=== PATIENT | female | born 1945 | race Caucasian/White ===

== ENCOUNTER 2019-05-01 15:40 | Inpatient (IN) ==
[2019-05-01] MEDS ORDERED: Ipratropium/Albuterol Neb 3 ML IH ONE (15:44)
[2019-05-01] MEDS ORDERED: 0.9 % Sodium Chloride 1,000 ML IVC ONE (15:55)
[2019-05-01] MEDS ORDERED: levoFLOXacin 750 MG/150 ML 750 MG/150 ML BAG IVPB ONE (15:55)
[2019-05-01 16:24] LABS: Basophils % 0.4 %; Eosinophils # 0.2 K/mcL (0.0-0.6); Eosinophils % 1.9 %; Hematocrit 28.5 % (35.3-44.9); Hemoglobin 9.4 g/dL (11.5-15.4); Immature Granulocytes % 0.4 % (0-4); Lymphocytes # 2.4 K/mcL (0.6-4.6); Lymphocytes % 30.2 %; Mean Corpuscular Hemoglobin 28.5 pg (28.0-33.3); Mean Corpuscular Volume 86.4 fL (83.0-100.0); Mean Platelet Volume 9.4 fL (9.4-12.4); Monocytes % 12.4 %; Neutrophils # 4.4 K/mcL (1.6-8.9); Platelet Count 252 K/mcL (140-400); Red Cell Distribution Width 15.9 % (11.5-14.5); Segmented Neutrophils % 54.7 %
[2019-05-01 16:32] LABS: INR 1.3; Prothrombin Time 15.3 Seconds (9.4-12.1)
[2019-05-01 16:43] LABS: Troponin I < 0.03 ng/mL (< 0.04)
[2019-05-01 16:44] LABS: Alanine Aminotransferase 16 Units/L (7-52); Albumin 3.4 g/dL (3.5-5.7); Albumin/Globulin Ratio 1.3 (1.1-2.2); Alkaline Phosphatase 59 Units/L (34-104); Aspartate Amino Transferase 17 Units/L (13-39); BUN/Creatinine Ratio 13 (6-26); Bilirubin,Direct 0.1 mg/dL (0.0-0.2); Bilirubin,Indirect 0.2 mg/dL (0.0-1.0); Bilirubin,Total 0.3 mg/dL (0.3-1.0); Blood Urea Nitrogen 5 mg/dL (8-23); Calcium 8.6 mg/dL (8.6-10.3); Carbon Dioxide 32 mEq/L (23-29); Chloride 91 mEq/L (98-107); Globulin 2.6 g/dL (2.4-3.5); Glucose 122 mg/dL (70-105); Osmolality,Calculated 269 (280-300); Potassium 3.3 mEq/L (3.5-5.1); Sodium 130 mEq/L (136-145); eGFR For African Americans > 60 (> 60); eGFR For Non-African Americans > 60 (> 60)
[2019-05-01] MEDS ORDERED: Ondansetron ODT 4 MG TAB.RAPDIS SL PRN (17:24)
[2019-05-01] MEDS ORDERED: Naloxone 0.4 MG/ML INJ IVP PRN (17:30)
[2019-05-01] MEDS ORDERED: Mag Hydrox/Al Hydrox/Simeth 30 ML UDC PO PRN (17:30)
[2019-05-01] MEDS: 0.9 % Sodium Chloride 1,000 ML IVC SCH (17:31)
[2019-05-01] MEDS ORDERED: D5% in Water 1,000 ML IVC PRN (17:32)
[2019-05-01] MEDS ORDERED: Dextrose Gel 15 GM/37.5 ML TUBE PO PRN ×2 (17:32)
[2019-05-01] MEDS ORDERED: *HR* Dextrose 50 % in Water (Vial) 50 ML VIAL IVP PRN (17:32)
[2019-05-01 17:53] LABS: Bilirubin,Urine Negative (Negative); Blood,Urine Trace-intact (Negative); Clarity,Urine Slightly Cloudy (Clear); Color,Urine Yellow (Yellow); Glucose,Urine (UA) 100 mg/dL (Normal); Ketones,Urine Negative (Negative); Leukocyte Esterase,Urine Small (Negative); Nitrite,Urine Negative (Negative); PH,Urine 5.5 pH Units (5.0-8.0); Protein,Urine Negative (Neg-Trace); Specific Gravity,Urine 1.025 (1.010-1.025); Urobilinogen,Urine Normal (Normal)
[2019-05-01 18:00] LABS: Bacteria,Urine Moderate per hpf (None-Few); Mucus,Urine Few per lpf (Few); RBC,Urine 0-3 per hpf (0-3); Squamous Epithelial Cell,Urine Many per lpf (None-Few)
[2019-05-01] MEDS ORDERED: Budesonide/Formoterol 160/4.5 1 PUFF INH IH SCH (18:00)
[2019-05-01] MEDS: Ipratropium/Albuterol Neb 3 ML IH SCH (18:27)
[2019-05-01] MEDS: Apixaban 5 MG TABLET PO SCH (20:19)
[2019-05-01] MEDS: Insulin LISPRO 300 UNITS/3 ML VIAL SQ SCH (20:20)
[2019-05-01] MEDS: Insulin DETEMIR 100 UNIT/ML X5UNITS SQ SCH (20:21)
[2019-05-01] MEDS: *HR* LORazepam 0.5 MG TABLET PO PRN (21:19)
[2019-05-01] MEDS: Budesonide/Formoterol 160/4.5 1 PUFF INH IH SCH (22:24)
[2019-05-02] MEDS: Ipratropium/Albuterol Neb 3 ML IH SCH ×3 (01:07→14:56)
[2019-05-02] MEDS: 0.9 % Sodium Chloride 1,000 ML IVC SCH ×2 (02:20→09:05)
[2019-05-02 07:02] LABS: Hematocrit 28.5 % (35.3-44.9); Hemoglobin 9.2 g/dL (11.5-15.4); Mean Corpuscular HGB Conc 32.3 g/dL (31.6-35.5); Mean Corpuscular Hemoglobin 28.1 pg (28.0-33.3); Mean Corpuscular Volume 87.2 fL (83.0-100.0); Mean Platelet Volume 10.1 fL (9.4-12.4); Platelet Count 256 K/mcL (140-400); Red Blood Count 3.27 M/mcL (3.82-4.97); White Blood Count 7.4 K/mcL (4.3-11.1)
[2019-05-02 07:32] LABS: BUN/Creatinine Ratio 15 (6-26); Blood Urea Nitrogen 5 mg/dL (8-23); Calcium 8.3 mg/dL (8.6-10.3); Carbon Dioxide 29 mEq/L (23-29); Chloride 100 mEq/L (98-107); Glucose 43 mg/dL (70-105); Osmolality,Calculated 280 (280-300); Potassium 3.1 mEq/L (3.5-5.1); Sodium 138 mEq/L (136-145); eGFR For African Americans > 60 (> 60); eGFR For Non-African Americans > 60 (> 60)
[2019-05-02] MEDS: Fluticasone Propionate Nasal 50 MCG/SPRAY BOTTLE NS SCH (09:04)
[2019-05-02] MEDS: Insulin LISPRO 300 UNITS/3 ML VIAL SQ SCH ×4 (09:04→21:04)
[2019-05-02] MEDS: DilTIAZem CD (24hr) 120 MG CAP.ER.24H PO SCH (09:06)
[2019-05-02] MEDS: Apixaban 5 MG TABLET PO SCH ×2 (09:06→21:02)
[2019-05-02] MEDS: Nicotine 21 MG PATCH.TD24 TD SCH (09:06)
[2019-05-02] MEDS: *HR* LORazepam 0.5 MG TABLET PO PRN ×2 (09:12→21:22)
[2019-05-02] MEDS ORDERED: Racepinephrine Neb 0.5 ML VIAL IH ONE (14:58)
[2019-05-02] MEDS ORDERED: *HR* LORazepam 2 MG/ML VIAL IVP STA (15:01)
[2019-05-02] MEDS ORDERED: Furosemide 40 MG/4 ML VIAL IVP ONE (15:19)
[2019-05-02 15:34] LABS: ABG Base Excess 1 mEq/L (-2 to 3); ABG HCO3 29 mEq/L (21-27); ABG Oxygen Saturation 96 % (95-98); ABG PCO2 60 mmHg (35-45); ABG PO2 94 mmHg (85-104); ABG TCO2 31 mEq/L (20-26)
[2019-05-02] MEDS ORDERED: levoFLOXacin 750 MG/150 ML 750 MG/150 ML BAG IVPB SCH (16:00)
[2019-05-02] MEDS ORDERED: Ipratropium/Albuterol Neb 3 ML IH STA (16:27)
[2019-05-02] MEDS: Budesonide/Formoterol 160/4.5 1 PUFF INH IH SCH (20:06)
[2019-05-02] MEDS: levoFLOXacin 750 MG/150 ML 750 MG/150 ML BAG IVPB SCH (21:02)
[2019-05-02] MEDS: Insulin DETEMIR 100 UNIT/ML X5UNITS SQ SCH (21:04)
[2019-05-02] MEDS: Albuterol 2.5 MG/3 ML NEBULIZER IH PRN (21:55)
[2019-05-03] MEDS: Ipratropium/Albuterol Neb 3 ML IH SCH ×3 (02:21→17:10)
[2019-05-03] MEDS: Insulin LISPRO 300 UNITS/3 ML VIAL SQ SCH ×4 (07:26→21:30)
[2019-05-03 08:22] LABS: Hematocrit 26.4 % (35.3-44.9); Hemoglobin 8.7 g/dL (11.5-15.4); Mean Corpuscular Hemoglobin 28.4 pg (28.0-33.3); Mean Corpuscular Volume 86.3 fL (83.0-100.0); Mean Platelet Volume 9.9 fL (9.4-12.4); Platelet Count 249 K/mcL (140-400); Red Blood Count 3.06 M/mcL (3.82-4.97); Red Cell Distribution Width 15.9 % (11.5-14.5); White Blood Count 8.4 K/mcL (4.3-11.1)
[2019-05-03] MEDS: Fluticasone Propionate Nasal 50 MCG/SPRAY BOTTLE NS SCH (08:39)
[2019-05-03] MEDS: DilTIAZem CD (24hr) 120 MG CAP.ER.24H PO SCH (08:39)
[2019-05-03] MEDS: Nicotine 21 MG PATCH.TD24 TD SCH (08:39)
[2019-05-03] MEDS: Apixaban 5 MG TABLET PO SCH ×2 (08:39→21:24)
[2019-05-03 08:43] LABS: BUN/Creatinine Ratio 12 (6-26); Blood Urea Nitrogen 4 mg/dL (8-23); Calcium 8.6 mg/dL (8.6-10.3); Carbon Dioxide 33 mEq/L (23-29); Chloride 97 mEq/L (98-107); Glucose 85 mg/dL (70-105); Magnesium 1.5 mg/dL (1.6-2.6); Osmolality,Calculated 280 (280-300); Potassium 3.4 mEq/L (3.5-5.1); Sodium 137 mEq/L (136-145); eGFR For African Americans > 60 (> 60); eGFR For Non-African Americans > 60 (> 60)
[2019-05-03] MEDS: Furosemide 20 MG/2 ML VIAL IVP SCH (10:38)
[2019-05-03] MEDS: *HR* LORazepam 0.5 MG TABLET PO PRN ×2 (10:38→18:58)
[2019-05-03 12:01] LABS: Adenovirus Not Detected (Not Detect); Bordetella Pertussis Not Detected (Not Detect); Chlamydophila pneumoniae Not Detected (Not Detect); Coronavirus 229E Not Detected (Not Detect); Coronavirus HKU1 Not Detected (Not Detect); Coronavirus NL63 Not Detected (Not Detect); Coronavirus OC43 Not Detected (Not Detect); Human Metapneumovirus Not Detected (Not Detect); Human Rhinovirus/Enterovirus Not Detected (Not Detect); Influenza A Subtype 2009 H1 Not Detected (Not Detect); Influenza B Not Detected (Not Detect); Mycoplasma pneumoniae Not Detected (Not Detect); Parainfluenza Virus 1 Not Detected (Not Detect); Parainfluenza Virus 2 Not Detected (Not Detect); Parainfluenza Virus 3 Not Detected (Not Detect); Parainfluenza Virus 4 Not Detected (Not Detect); Respiratory Syncytial Virus Not Detected (Not Detect)
[2019-05-03] MEDS: Magnesium Oxide 400 MG TABLET PO SCH ×2 (12:40→21:30)
[2019-05-03] MEDS: MethylPREDNISolone 40 MG/ML VIAL IVP SCH ×2 (17:00→22:51)
[2019-05-03] MEDS: levoFLOXacin 750 MG/150 ML 750 MG/150 ML BAG IVPB SCH (21:25)
[2019-05-03] MEDS: Insulin DETEMIR 100 UNIT/ML X5UNITS SQ SCH (21:30)
[2019-05-03] MEDS: Budesonide/Formoterol 160/4.5 1 PUFF INH IH SCH (21:47)
[2019-05-03] MEDS: Albuterol 2.5 MG/3 ML NEBULIZER IH PRN (21:49)
[2019-05-04] MEDS: Ipratropium/Albuterol Neb 3 ML IH SCH ×3 (02:36→17:40)
[2019-05-04 07:21] LABS: Hematocrit 27.7 % (35.3-44.9); Mean Corpuscular HGB Conc 32.5 g/dL (31.6-35.5); Mean Corpuscular Hemoglobin 28.3 pg (28.0-33.3); Mean Corpuscular Volume 87.1 fL (83.0-100.0); Mean Platelet Volume 10.3 fL (9.4-12.4); Platelet Count 251 K/mcL (140-400); Red Blood Count 3.18 M/mcL (3.82-4.97); Red Cell Distribution Width 15.8 % (11.5-14.5); White Blood Count 4.4 K/mcL (4.3-11.1)
[2019-05-04 07:57] LABS: BUN/Creatinine Ratio 19 (6-26); Blood Urea Nitrogen 8 mg/dL (8-23); Calcium 9.1 mg/dL (8.6-10.3); Carbon Dioxide 33 mEq/L (23-29); Chloride 95 mEq/L (98-107); Glucose 282 mg/dL (70-105); Osmolality,Calculated 291 (280-300); Potassium 4.2 mEq/L (3.5-5.1); Sodium 136 mEq/L (136-145); eGFR For African Americans > 60 (> 60); eGFR For Non-African Americans > 60 (> 60)
[2019-05-04] MEDS: Fluticasone Propionate Nasal 50 MCG/SPRAY BOTTLE NS SCH (08:42)
[2019-05-04] MEDS: Furosemide 20 MG/2 ML VIAL IVP SCH (08:42)
[2019-05-04] MEDS: MethylPREDNISolone 40 MG/ML VIAL IVP SCH ×3 (08:43→23:26)
[2019-05-04] MEDS: Nicotine 21 MG PATCH.TD24 TD SCH (08:43)
[2019-05-04] MEDS: Insulin LISPRO 300 UNITS/3 ML VIAL SQ SCH ×4 (08:44→21:10)
[2019-05-04] MEDS: Magnesium Oxide 400 MG TABLET PO SCH ×2 (08:46→21:09)
[2019-05-04] MEDS: *HR* LORazepam 0.5 MG TABLET PO PRN ×2 (08:47→17:07)
[2019-05-04] MEDS: Apixaban 5 MG TABLET PO SCH ×2 (08:47→21:10)
[2019-05-04] MEDS: DilTIAZem CD (24hr) 120 MG CAP.ER.24H PO SCH (08:48)
[2019-05-04] MEDS: Insulin DETEMIR 100 UNIT/ML X5UNITS SQ SCH (21:10)
[2019-05-04] MEDS: Budesonide/Formoterol 160/4.5 1 PUFF INH IH SCH (21:51)
[2019-05-04] MEDS: Piperacillin/Tazobactam 3.375 GM in 0.9 % Sodium Chloride Mini Bag 100 ML IVPB SCH (23:26)
[2019-05-05] MEDS: Ipratropium/Albuterol Neb 3 ML IH SCH ×3 (02:46→18:31)
[2019-05-05 06:33] LABS: Hematocrit 25.8 % (35.3-44.9); Hemoglobin 8.4 g/dL (11.5-15.4); Mean Corpuscular HGB Conc 32.6 g/dL (31.6-35.5); Mean Corpuscular Hemoglobin 28.5 pg (28.0-33.3); Mean Corpuscular Volume 87.5 fL (83.0-100.0); Mean Platelet Volume 10.4 fL (9.4-12.4); Platelet Count 266 K/mcL (140-400); Red Blood Count 2.95 M/mcL (3.82-4.97); Red Cell Distribution Width 15.9 % (11.5-14.5); White Blood Count 9.3 K/mcL (4.3-11.1)
[2019-05-05 06:59] LABS: BUN/Creatinine Ratio 28 (6-26); Blood Urea Nitrogen 13 mg/dL (8-23); Carbon Dioxide 35 mEq/L (23-29); Chloride 95 mEq/L (98-107); Glucose 316 mg/dL (70-105); Osmolality,Calculated 292 (280-300); Potassium 4.6 mEq/L (3.5-5.1); Sodium 135 mEq/L (136-145); eGFR For African Americans > 60 (> 60); eGFR For Non-African Americans > 60 (> 60)
[2019-05-05] MEDS: Piperacillin/Tazobactam 3.375 GM in 0.9 % Sodium Chloride Mini Bag 100 ML IVPB SCH ×3 (08:03→23:23)
[2019-05-05] MEDS: Furosemide 20 MG/2 ML VIAL IVP SCH (08:11)
[2019-05-05] MEDS: MethylPREDNISolone 40 MG/ML VIAL IVP SCH (08:11)
[2019-05-05] MEDS: Fluticasone Propionate Nasal 50 MCG/SPRAY BOTTLE NS SCH (08:11)
[2019-05-05] MEDS: Apixaban 5 MG TABLET PO SCH ×2 (08:15→20:28)
[2019-05-05] MEDS: DilTIAZem CD (24hr) 120 MG CAP.ER.24H PO SCH (08:15)
[2019-05-05] MEDS: Magnesium Oxide 400 MG TABLET PO SCH (08:16)
[2019-05-05] MEDS: *HR* LORazepam 0.5 MG TABLET PO PRN ×2 (08:20→16:51)
[2019-05-05] MEDS: Insulin LISPRO 300 UNITS/3 ML VIAL SQ SCH ×4 (08:21→20:29)
[2019-05-05] MEDS: Nicotine 21 MG PATCH.TD24 TD SCH (08:23)
[2019-05-05] MEDS ORDERED: Furosemide 20 MG TABLET PO PRN (14:11)
[2019-05-05] MEDS: predniSONE 20 MG TABLET PO SCH (14:30)
[2019-05-05] MEDS: Furosemide 20 MG TABLET PO SCH (18:20)
[2019-05-05] MEDS: Insulin DETEMIR 100 UNIT/ML X5UNITS SQ SCH (20:29)
[2019-05-05] MEDS ORDERED: Budesonide/Formoterol 160/4.5 1 PUFF INH IH SCH (22:00)
[2019-05-06] MEDS: Ipratropium/Albuterol Neb 3 ML IH SCH ×2 (00:58→10:42)
[2019-05-06] MEDS: Nicotine 21 MG PATCH.TD24 TD SCH (08:47)
[2019-05-06] MEDS: Fluticasone Propionate Nasal 50 MCG/SPRAY BOTTLE NS SCH (08:47)
[2019-05-06] MEDS: Furosemide 20 MG TABLET PO SCH (08:48)
[2019-05-06] MEDS: predniSONE 20 MG TABLET PO SCH (08:48)
[2019-05-06] MEDS: DilTIAZem CD (24hr) 120 MG CAP.ER.24H PO SCH (08:48)
[2019-05-06] MEDS: *HR* LORazepam 0.5 MG TABLET PO PRN (08:48)
[2019-05-06] MEDS: Apixaban 5 MG TABLET PO SCH (08:48)
[2019-05-06] MEDS: Piperacillin/Tazobactam 3.375 GM in 0.9 % Sodium Chloride Mini Bag 100 ML IVPB SCH (08:49)
[2019-05-06] MEDS: Insulin LISPRO 300 UNITS/3 ML VIAL SQ SCH ×2 (08:57→12:16)
[2019-05-06 09:54] LABS: Hematocrit 29.4 % (35.3-44.9); Hemoglobin 9.5 g/dL (11.5-15.4); Mean Corpuscular HGB Conc 32.3 g/dL (31.6-35.5); Mean Corpuscular Hemoglobin 28.1 pg (28.0-33.3); Platelet Count 307 K/mcL (140-400); Red Blood Count 3.38 M/mcL (3.82-4.97); Red Cell Distribution Width 16.3 % (11.5-14.5); White Blood Count 11.8 K/mcL (4.3-11.1)
[2019-05-06 10:10] LABS: BUN/Creatinine Ratio 27 (6-26); Blood Urea Nitrogen 16 mg/dL (8-23); Carbon Dioxide 35 mEq/L (23-29); Chloride 94 mEq/L (98-107); Glucose 220 mg/dL (70-105); Magnesium 1.8 mg/dL (1.6-2.6); Osmolality,Calculated 290 (280-300); Potassium 4.1 mEq/L (3.5-5.1); Sodium 136 mEq/L (136-145); eGFR For African Americans > 60 (> 60); eGFR For Non-African Americans > 60 (> 60)
[2019-05-06 10:47] VITALS: BP 126/70
== END 2019-05-06 15:20 | disposition other institution (70) | DRG 191 ==
LOC: EMEROOPIK 15:40 → INPPIK 15:40
PROVIDERS: ADMIT Family Medicine; ATTEND Family Medicine

== ENCOUNTER 2019-05-06 10:13 | Inpatient (IN) ==
[2019-05-06] MEDS ORDERED: *HR* Dextrose 50 % in Water (Syg) 50 ML SYRINGE IVP PRN (15:28)
[2019-05-06] MEDS ORDERED: D5% in Water 1,000 ML IVC PRN (15:28)
[2019-05-06] MEDS ORDERED: Dextrose Gel 15 GM/37.5 ML TUBE PO PRN ×2 (15:28)
[2019-05-06] MEDS ORDERED: Ondansetron ODT 4 MG TAB.RAPDIS SL PRN (15:41)
[2019-05-06] MEDS ORDERED: Albuterol 2.5 MG/3 ML NEBULIZER IH PRN (15:41)
[2019-05-06] MEDS ORDERED: Mag Hydrox/Al Hydrox/Simeth 30 ML UDC PO PRN (15:41)
[2019-05-06] MEDS ORDERED: Piperacillin/Tazobactam 3.375 GM VIAL IVPB SCH (16:00)
[2019-05-06] MEDS ORDERED: *HR* Dextrose 50 % in Water (Vial) 50 ML VIAL IVP PRN (17:15)
[2019-05-06] MEDS: Ipratropium/Albuterol Neb 3 ML IH SCH (17:24)
[2019-05-06] MEDS: Piperacillin/Tazobactam 3.375 GM in 0.9 % Sodium Chloride Mini Bag 100 ML IVPB SCH (17:38)
[2019-05-06] MEDS: Insulin LISPRO 300 UNITS/3 ML VIAL SQ SCH ×2 (17:39→19:56)
[2019-05-06] MEDS: *HR* LORazepam 0.5 MG TABLET PO PRN (17:44)
[2019-05-06] MEDS: Apixaban 5 MG TABLET PO SCH (19:54)
[2019-05-06] MEDS: Insulin DETEMIR 100 UNIT/ML X5UNITS SQ SCH (19:55)
[2019-05-06] MEDS: Budesonide/Formoterol 160/4.5 1 PUFF INH IH SCH (21:31)
[2019-05-07] MEDS: Ipratropium/Albuterol Neb 3 ML IH SCH ×3 (02:52→17:13)
[2019-05-07] MEDS: Piperacillin/Tazobactam 3.375 GM in 0.9 % Sodium Chloride Mini Bag 100 ML IVPB SCH ×3 (02:56→17:56)
[2019-05-07 06:18] LABS: Basophils # 0.1 K/mcL (0.0-0.2); Basophils % 0.6 %; Eosinophils % 0.1 %; Hematocrit 28.9 % (35.3-44.9); Hemoglobin 9.5 g/dL (11.5-15.4); Lymphocytes # 1.1 K/mcL (0.6-4.6); Lymphocytes % 11.1 %; Mean Corpuscular HGB Conc 32.9 g/dL (31.6-35.5); Mean Corpuscular Hemoglobin 28.3 pg (28.0-33.3); Mean Platelet Volume 10.3 fL (9.4-12.4); Monocytes # 1.5 K/mcL (0.0-1.3); Neutrophils # 6.5 K/mcL (1.6-8.9); Nucleated Red Blood Cells 0.4 /100 WBC (0); Platelet Count 297 K/mcL (140-400); Red Blood Count 3.36 M/mcL (3.82-4.97); Red Cell Distribution Width 15.9 % (11.5-14.5); Segmented Neutrophils % 64.2 %
[2019-05-07 06:39] LABS: BUN/Creatinine Ratio 24 (6-26); Blood Urea Nitrogen 12 mg/dL (8-23); Carbon Dioxide 35 mEq/L (23-29); Chloride 96 mEq/L (98-107); Glucose 74 mg/dL (70-105); Osmolality,Calculated 284 (280-300); Potassium 3.8 mEq/L (3.5-5.1); Sodium 138 mEq/L (136-145); eGFR For African Americans > 60 (> 60); eGFR For Non-African Americans > 60 (> 60)
[2019-05-07 07:23] LABS: Platelet Estimate Normal (Normal)
[2019-05-07] MEDS: Insulin LISPRO 300 UNITS/3 ML VIAL SQ SCH ×4 (07:58→19:54)
[2019-05-07] MEDS: Furosemide 20 MG TABLET PO SCH (09:04)
[2019-05-07] MEDS: Nicotine 21 MG PATCH.TD24 TD SCH (09:04)
[2019-05-07] MEDS: Apixaban 5 MG TABLET PO SCH ×2 (09:05→19:53)
[2019-05-07] MEDS: DilTIAZem CD (24hr) 120 MG CAP.ER.24H PO SCH (09:05)
[2019-05-07] MEDS: predniSONE 20 MG TABLET PO SCH (09:05)
[2019-05-07] MEDS: *HR* LORazepam 0.5 MG TABLET PO PRN ×2 (09:05→19:53)
[2019-05-07] MEDS: Fluticasone Propionate Nasal 50 MCG/SPRAY BOTTLE NS SCH (09:09)
[2019-05-07] MEDS: Insulin DETEMIR 100 UNIT/ML X5UNITS SQ SCH (19:53)
[2019-05-07] MEDS: Budesonide/Formoterol 160/4.5 1 PUFF INH IH SCH (22:15)
[2019-05-08] MEDS: Ipratropium/Albuterol Neb 3 ML IH SCH ×3 (02:55→17:11)
[2019-05-08] MEDS: Piperacillin/Tazobactam 3.375 GM in 0.9 % Sodium Chloride Mini Bag 100 ML IVPB SCH ×3 (03:11→18:44)
[2019-05-08] MEDS: Insulin LISPRO 300 UNITS/3 ML VIAL SQ SCH ×4 (07:40→20:49)
[2019-05-08] MEDS: Apixaban 5 MG TABLET PO SCH ×2 (09:12→20:48)
[2019-05-08] MEDS: Fluticasone Propionate Nasal 50 MCG/SPRAY BOTTLE NS SCH (09:13)
[2019-05-08] MEDS: Furosemide 20 MG TABLET PO SCH (09:13)
[2019-05-08] MEDS: *HR* LORazepam 0.5 MG TABLET PO PRN ×2 (09:13→20:48)
[2019-05-08] MEDS: DilTIAZem CD (24hr) 120 MG CAP.ER.24H PO SCH (09:13)
[2019-05-08] MEDS: predniSONE 20 MG TABLET PO SCH (09:13)
[2019-05-08] MEDS: Nicotine 21 MG PATCH.TD24 TD SCH (09:13)
[2019-05-08] MEDS: Insulin DETEMIR 100 UNIT/ML X5UNITS SQ SCH (20:48)
[2019-05-08] MEDS: Budesonide/Formoterol 160/4.5 1 PUFF INH IH SCH (22:23)
[2019-05-09] MEDS: Ipratropium/Albuterol Neb 3 ML IH SCH ×3 (02:11→18:03)
[2019-05-09] MEDS: Piperacillin/Tazobactam 3.375 GM in 0.9 % Sodium Chloride Mini Bag 100 ML IVPB SCH ×3 (02:17→17:28)
[2019-05-09] MEDS: Insulin LISPRO 300 UNITS/3 ML VIAL SQ SCH ×4 (09:22→20:54)
[2019-05-09] MEDS: Apixaban 5 MG TABLET PO SCH ×2 (09:23→20:55)
[2019-05-09] MEDS: Nicotine 21 MG PATCH.TD24 TD SCH (09:24)
[2019-05-09] MEDS: Furosemide 20 MG TABLET PO SCH (09:24)
[2019-05-09] MEDS: DilTIAZem CD (24hr) 120 MG CAP.ER.24H PO SCH (09:24)
[2019-05-09] MEDS: predniSONE 20 MG TABLET PO SCH (09:24)
[2019-05-09] MEDS: *HR* LORazepam 0.5 MG TABLET PO PRN ×2 (09:34→21:00)
[2019-05-09] MEDS: Fluticasone Propionate Nasal 50 MCG/SPRAY BOTTLE NS SCH (12:41)
[2019-05-09] MEDS ORDERED: Dextrose Gel 15 GM/37.5 ML TUBE PO PRN ×2 (20:51)
[2019-05-09] MEDS ORDERED: D5% in Water 1,000 ML IVC PRN (20:51)
[2019-05-09] MEDS ORDERED: *HR* Dextrose 50 % in Water (Vial) 50 ML VIAL IVP PRN (20:51)
[2019-05-09] MEDS: Insulin DETEMIR 100 UNIT/ML X5UNITS SQ SCH (20:55)
[2019-05-09] MEDS: Budesonide/Formoterol 160/4.5 1 PUFF INH IH SCH (22:25)
[2019-05-10] MEDS: Piperacillin/Tazobactam 3.375 GM in 0.9 % Sodium Chloride Mini Bag 100 ML IVPB SCH ×2 (01:01→08:53)
[2019-05-10] MEDS: Insulin LISPRO 300 UNITS/3 ML VIAL SQ SCH ×4 (01:05→17:13)
[2019-05-10] MEDS: Ipratropium/Albuterol Neb 3 ML IH SCH (02:43)
[2019-05-10] MEDS: Fluticasone Propionate Nasal 50 MCG/SPRAY BOTTLE NS SCH (08:49)
[2019-05-10] MEDS: Nicotine 21 MG PATCH.TD24 TD SCH (08:50)
[2019-05-10] MEDS: Apixaban 5 MG TABLET PO SCH ×2 (08:50→20:49)
[2019-05-10] MEDS: DilTIAZem CD (24hr) 120 MG CAP.ER.24H PO SCH (08:50)
[2019-05-10] MEDS: predniSONE 20 MG TABLET PO SCH ×2 (08:50→09:44)
[2019-05-10] MEDS: Furosemide 20 MG TABLET PO SCH (08:51)
[2019-05-10] MEDS ORDERED: Ipratropium/Albuterol Neb 3 ML IH PRN (08:56)
[2019-05-10] MEDS: *HR* Metformin 500 MG TABLET PO SCH (10:30)
[2019-05-10] MEDS: Magnesium Oxide 400 MG TABLET PO SCH ×2 (10:30→20:49)
[2019-05-10] MEDS: Cholecalciferol (D-3) 1,000 UNIT (25MCG) TABLET PO SCH (10:30)
[2019-05-10] MEDS: *HR* LORazepam 0.5 MG TABLET PO PRN (10:34)
[2019-05-10] MEDS: Insulin DETEMIR 100 UNIT/ML X5UNITS SQ SCH (20:50)
[2019-05-10] MEDS ORDERED: Insulin LISPRO 300 UNITS/3 ML VIAL SQ SCH (21:00)
[2019-05-10] MEDS: Budesonide/Formoterol 160/4.5 1 PUFF INH IH SCH (22:05)
[2019-05-11 07:21] VITALS: BP 123/55
[2019-05-11] MEDS: predniSONE 20 MG TABLET PO SCH (09:32)
[2019-05-11] MEDS: Nicotine 21 MG PATCH.TD24 TD SCH (09:32)
[2019-05-11] MEDS: Furosemide 20 MG TABLET PO SCH (09:32)
[2019-05-11] MEDS: DilTIAZem CD (24hr) 120 MG CAP.ER.24H PO SCH (09:32)
[2019-05-11] MEDS: Magnesium Oxide 400 MG TABLET PO SCH (09:32)
[2019-05-11] MEDS: Cholecalciferol (D-3) 1,000 UNIT (25MCG) TABLET PO SCH (09:32)
[2019-05-11] MEDS: Apixaban 5 MG TABLET PO SCH (09:32)
[2019-05-11] MEDS: *HR* Metformin 500 MG TABLET PO SCH (09:33)
[2019-05-11] MEDS: Insulin LISPRO 300 UNITS/3 ML VIAL SQ SCH ×2 (09:33→11:45)
[2019-05-11] MEDS: Fluticasone Propionate Nasal 50 MCG/SPRAY BOTTLE NS SCH (09:37)
== END 2019-05-11 14:10 | disposition home health service (06) | DRG 945 ==
LOC: INPPIK 15:38
PROVIDERS: ADMIT Family Medicine; ATTEND Family Medicine